=== PATIENT | male | born 1955 | race Caucasian/White ===

== ENCOUNTER 2017-10-28 08:09 | Day surgery (SDC) | payer OTHER ==
[~2017-10-28] VITALS: Ht 170.2 cm; Wt 68.0 kg
[~2017-10-28 08:09] MED LIST: ALENDRONATE SOD70 MG PO; AMLODIPINE BESY10 MG PO; ASPIRIN81 M2 PO; ATORVASTATIN CA80 MG PO; CALCIUM500 M4 PO; OMEPRAZOLE20 MG PO; PROAIR RESPICL90 MCG IH; SYMBICORT60 INHALAT IH; TRAZODONE HCL100 MG PO; VENLAFAXINE HC150 M1 PO; VITAMIN D31000 UNIT PO
== END 2017-10-28 10:55 | disposition home or self-care (01) ==
LOC: CATH 08:09
PROC: 0JH60WZ Insertion of Totally Implantable Vascular Access Device into Chest Subcutaneous Tissue and Fascia, Open Approach (ICD-10-PCS; principal; 2017-10-28)
DX: Z45.2 Encounter for adjustment and management of vascular access device (principal); I87.8 Other specified disorders of veins; C34.91 Malignant neoplasm of unspecified part of right bronchus or lung; I10 Essential (primary) hypertension; E78.00 Pure hypercholesterolemia, unspecified; J44.9 Chronic obstructive pulmonary disease, unspecified; Z79.82 Long term (current) use of aspirin; F17.200 Nicotine dependence, unspecified, uncomplicated
CPT/HCPCS: C1788; C1894; J0690; J1644; J2250; J3010; S0020